=== PATIENT | female | born 1935 | race Caucasian/White ===

== ENCOUNTER 2016-08-10 21:30 | Emergency (ER) | payer MEDICARE, BC ==
[2016-08-10 21:56] VITALS: BP 123/66
[2016-08-10] MEDS ORDERED: Gabapentin 400 MG Cap ONE (22:28)
--- NOTE | 2016-08-10 22:49 | EDM.PDOC ---
ED HPI GENERAL MEDICAL PROBLEM - General Chief Complaint: Neurological Problem Stated Complaint: DIZZY Time Seen by Provider: 08/10/16 22:10 Source of Information: Reports: Patient, Family History Limitations: Reports: No Limitations - History of Present Illness INITIAL COMMENTS - FREE TEXT/NARRATIVE: 80-year-old female who was brought in by friends today because all day long she just hasn't felt right. She feels somewhat weak, lightheaded, anxious and is concerned that something is wrong. She has no fever or chills, no shortness of breath or chest pain, some minimal nausea but no abdominal pain or vomiting. She felt she may be dehydrated so drank a bunch of extra water this morning. Onset: Unknown/Unsure Severity: Mild Improves with: Reports: None Worsens with: Reports: None Associated Symptoms: Reports: Malaise. Denies: Chest Pain, Cough, Diaphoresis, Fever/Chills, Headaches, Loss of Appetite, Rash, Shortness of Breath, Syncope - Related Data Allergies Allergy/AdvReac Type Severity Reaction Status Date / Time No Known Allergies Allergy Verified 01/17/16 08:41 Home Meds: Home Meds Aspirin [Dalila Chewable Aspirin] 81 mg PO BEDTIME 08/29/13 [History] Triamterene/Hydrochlorothiazid [Dyazide 37.5-25] 1 cap PO DAILY 08/29/13 [ History] Multivitamins 1 each PO DAILY 10/17/13 [History] Ca Carbonate/Vitamin D3/Vit K [Calcium + D Soft Chewable Tab] 1 each PO BID [History] atorvaSTATin [Lipitor] 10 mg PO BEDTIME 11/14/15 [History] Gabapentin [Gabapentin] 1 tab PO TID 08/10/16 [History] Past Medical History HEENT History: Reports: Hard of Hearing, Impaired Vision, Other (See Below) Other HEENT History: meneres disease Cardiovascular History: Reports: High Cholesterol, Hypertension Respiratory History: Reports: Other (See Below) Other Respiratory History: Pneumonia within the past 4 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: Musculoskeletal History: Reports: Other (See Below) Other 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 Immunologic History: Reports: Other (See Below) Other Immunologic History: polymyalgia rheumatica (pmr) Dermatologic History: Reports: Other (See Below) Other Dermatologic History: rosacia - Past Surgical History HEENT Surgical History: Reports: Cataract Surgery GI Surgical History: Reports: Colonoscopy, Other (See Below) Musculoskeletal Surgical History: Reports: Hip Replacement Social & Family History - Tobacco Use Smoking Status *Q: Never Smoker Second Hand Smoke Exposure: No - Caffeine Use Caffeine Use: Reports: Coffee - Alcohol Use Days Per Week of Alcohol Use: 0 - Recreational Drug Use Recreational Drug Use: No - Living Situation & Occupation Living situation: Reports: ED ROS GENERAL - Review of Systems Review Of Systems: See Below Constitutional: Reports: Malaise, Weakness. Denies: Fever, Chills HEENT: Reports: No Symptoms. Denies: Vision Change Respiratory: Denies: Shortness of Breath, Cough Cardiovascular: Denies: Chest Pain Endocrine: Denies: Fatigue GI/Abdominal: Reports: Decreased Appetite, Nausea. 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 No: Extra Beats GI/Abdominal: Soft, Non-Tender Extremities: Normal Inspection. No: Pedal Edema Neurological: Alert, Oriented Psychiatric: Anxious Skin Exam: Warm, Dry Course - Vital Signs Last Recorded V/S: Last Vital Signs Temp 98.4 F 08/10/16 23:09 Pulse 74 08/10/16 23:09 Resp 20 08/10/16 23:09 BP 123/66 08/10/16 23:09 Pulse Ox 98 08/10/16 23:09 - Orders/Labs/Meds Labs: Laboratory Tests 08/10/16 08/10/16 Range/Units 22:22 22:22 WBC 6.6 (4.5-11.0) K/uL RBC 3.62 (3.30-5.50) M/uL Hgb 11.6 L (12.0-15.0) g/dL Hct 32.6 L (36.0-48.0) % MCV 90 (80-98) fL MCH 32 H (27-31) pg MCHC 36 (32-36) % Plt Count 245 (150-400) K/uL Neut % (Auto) 55 (36-66) % Lymph % (Auto) 29 (24-44) % Smith % (Auto) 14 H (2-6) % Eos % (Auto) 1 L (2-4) % Baso % (Auto) 1 (0-1) % Sodium 121 L (140-148) mmol/L Potassium 3.8 (3.6-5.2) mmol/L Chloride 86 L (100-108) mmol/L Carbon Dioxide 30 (21-32) mmol/L Anion Gap 8.8 (5.0-14.0) mmol/L BUN 21 H D (7-18) mg/dL Creatinine 0.9 (0.6-1.0) mg/dL Est Cr Clr Drug Dosing 42.61 mL/min Estimated GFR (MDRD) > 60 (>60) Glucose 82 (74-106) mg/dL Calcium 8.0 L (8.5-10.1) mg/dL Meds: Medications Discontinued Medications Generic Name Dose Route Start Last Admin Trade Name Freq PRN Reason Stop Dose Admin Gabapentin 400 mg 08/11/16 22:11 08/10/16 22:31 Neurontin PO 08/11/16 22:12 400 mg ONETIME ONE Administration Gabapentin Confirm 08/10/16 22:28 Neurontin Administered 08/10/16 22:29 Dose 400 mg .ROUTE .STK-MED ONE - Re-Assessments/Exams Free Text/Narrative Re-Assessment/Exam: 08/10/16 22:48 For reassurance a CBC and BMP were obtained. 08/10/16 23:04 CBC is normal, BMP shows a sodium of 121 otherwise basically normal. She was given 400 mg gabapentin. The sodium is probably low because of the increased water intake and I asked the patient to resume oral intake of water to just what she feels she needs and not push extra water intake. It would be reasonable to recheck her sodium later this week Departure - Departure Time of Disposition: 23:09 Disposition: Home, Self-Care 01 Condition: good Clinical Impression: Dilutional hyponatremia, Dizziness, nonspecific - Discharge Information Instructions: Hyponatremia, [id number] Referrals: Eloisa Miner CNM [Primary Care Provider] - Forms: ED Department Discharge Care Plan Goals: Drink no extra water, only what is recommended with your medications and if you feel thirsty. Return if worsening such as fever or chest pain. Consider rechecking your sodium next week at the clinic.
[2016-08-11] MEDS ORDERED: Gabapentin 400 MG Cap PO ONE (22:11)
== END 2016-08-10 23:09 | disposition home or self-care (01) ==
LOC: JP.ED 21:30
DX: E87.1 Hypo-osmolality and hyponatremia (principal); R42 Dizziness and giddiness; I10 Essential (primary) hypertension; E78.00 Pure hypercholesterolemia, unspecified; Z98.49 Cataract extraction status, unspecified eye; Z96.649 Presence of unspecified artificial hip joint; Z79.82 Long term (current) use of aspirin; Z79.899 Other long term (current) drug therapy
CPT/HCPCS: 36415; 80048; 85025; 99284; A9270; 99283

== ENCOUNTER 2017-03-24 05:27 | Inpatient (IN) | payer MEDICARE, BC ==
[2017-03-24] MEDS ORDERED: Gabapentin 300 MG Cap PO ONE ×2 (06:31→09:00)
[2017-03-24] MEDS ORDERED: Acetaminophen 500 MG Tab PO ONE ×2 (06:31→09:00)
[2017-03-24] MEDS ORDERED: Lactated Ringers 1,000 ML IV SCH ×2 (06:32→09:00)
[2017-03-24] MEDS ORDERED: ceFAZolin 1 GM in Premix Bag 1 BAG IV ONE ×3 (06:32→09:00)
[2017-03-24] MEDS ORDERED: Scopolamine 1.5 MG Transdermal Patch TOP SCH ×2 (06:32→09:00)
[2017-03-24] MEDS ORDERED: Povidone-Iodine 10% Soln 118.25 ML Bottle ONE (07:12)
[2017-03-24] MEDS ORDERED: Thrombin (Bovine) 5,000 Unit Kit ONE (07:12)
[2017-03-24] MEDS ORDERED: fentaNYL 250 MCG/5 ML SDV ONE ×2 (07:23→08:53)
[2017-03-24] MEDS ORDERED: Rocuronium 50 MG/5 ML Vial ONE (07:24)
[2017-03-24] MEDS ORDERED: Ondansetron 4 MG/2 ML SDV ONE (07:24)
[2017-03-24] MEDS ORDERED: Propofol 200 MG/20 ML SDV ONE (07:24)
[2017-03-24] MEDS ORDERED: Neostigmine Methylsulfate 1 MG/ML 5 ML Syringe ONE (07:24)
[2017-03-24] MEDS ORDERED: Glycopyrrolate 0.2 MG/ML 5 ML MDV ONE (07:24)
[2017-03-24] MEDS ORDERED: Dexamethasone 4 MG/ML SDV ONE (07:24)
[2017-03-24] MEDS ORDERED: Ropivacaine 49.25 ML, Ketorolac 30 MG, EPINEPHrine 0.5 MG, cloNIDine 80 MCG, Sodium Chl... INJECT ONE ×5 (07:30)
[2017-03-24] MEDS ORDERED: Gelatin Sponge,Absorbable Pwd 1 GM Pkt ONE (08:00)
[2017-03-24] MEDS ORDERED: ceFAZolin 1 GM in Sodium Chloride 0.9% 50 ML IV ONE (09:00)
[2017-03-24] MEDS ORDERED: Magnesium Hydroxide 400 MG/5 ML Susp 30 ML Cup PO PRN (09:31)
[2017-03-24] MEDS ORDERED: HYDROmorphone 1 MG/ML Syringe IVPUSH PRN (09:31)
[2017-03-24] MEDS ORDERED: Ondansetron 4 MG/2 ML SDV IVPUSH PRN (09:31)
[2017-03-24] MEDS ORDERED: Zolpidem 5 MG Tab PO PRN (09:31)
[2017-03-24] MEDS ORDERED: Aluminum Hydroxide/Magnesium Hydroxide/Simethicone Susp 30 ML Cup PO PRN (09:31)
[2017-03-24] MEDS ORDERED: Naloxone 0.4 MG/ML SDV IVPUSH PRN (09:31)
[2017-03-24] MEDS ORDERED: Sennosides 8.6 MG Tab PO PRN (09:31)
[2017-03-24] MEDS ORDERED: Diazepam 5 MG Tab PO PRN (09:31)
[2017-03-24] MEDS ORDERED: Sodium Chloride 0.9% 1,000 ML IV SCH (09:45)
[2017-03-24] MEDS ORDERED: ceFAZolin 1 GM in Sodium Chloride 0.9% 50 ML IV SCH (09:45)
[2017-03-24] MEDS ORDERED: fentaNYL 100 MCG/2 ML SDV IVPUSH ONE (09:50)
[2017-03-24] MEDS ORDERED: Acetaminophen 1,000 MG in Premix Bag 1 BAG IV ONE (10:00)
--- NOTE | 2017-03-24 10:17 | OR ---
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 POSTOPERATIVE DIAGNOSIS: L4-5 stenosis. PROCEDURE: L4-5 laminectomy. FORECLOSURE SPECIALIST: LANDON Hernandez Physician financial planning assistant, LANDON Guzman, played an essential role in assisting in this case, helping to position the patient, retract structures as needed, as well as suturing and cutting sutures as indicated. Her presence improved patient's safety and decreased operative time. ANESTHESIA: General endotracheal intubation. FLUIDS: Lactated Ringer solution. ESTIMATED BLOOD LOSS: 50 mL. COMPLICATIONS: None. SPECIMENS: None. DISCHARGE DISPOSITION: Stable, to PACU. INDICATIONS FOR PROCEDURE: The patient was seen preoperatively in the clinic. She had failed nonoperative treatment. Preoperative imaging confirmed the above-mentioned diagnosis. Risks and benefits of the procedure were explained to the patient. Informed consent was obtained. PROCEDURE IN DETAIL: The patient was seen preoperatively by myself and the anesthesia staff in the preoperative holding area. We did rerun her sodium today, which was 129, which we felt was safe to continue. We started her on sodium chloride per Anesthesia recommendations. She was brought to the operative suite by the anesthesia staff where general anesthesia was administered. Sterile Cesar catheter was placed. The patient was then prepped and flipped onto a Ike table. All extremities found to be well padded. The bed was then flexed. The patient was then prepped and draped in a sterile manner. Time- out was called, identifying the correct patient, the correct procedure, the correct site, and that antibiotics had been begun within an appropriate period of time. The sterilely draped fluoroscopy unit was then used in the lateral position to identify the L4-5 interspace. An incision was made over the L4-5 interspace over the spinous processes and carried down to the deep fascia. Bleeding was controlled during the case with Bovie electrocautery as well as an Aquamantys 5.0 unit. I used cerebellar for initial retraction and then used a Russo elevator with Bovie electrocautery over the L4 and L5 spinous processes, lamina out to the level of the facets. I then inserted two 45 mm Versa-Trac blades and then removed the inferior portion of the L4 spinous process and the superior most aspect of the L5 lamina and carried this up to the level of the pedicle of L4. I then used the cottonoid to protect the ligamentum flavum and dura and then removed the remainder of the inferior L4 lamina and superior L5 lamina. I then inserted a long ball underneath the ligamentum flavum, then created a space, then inserted a cottonoid, and then remove the ligamentum flavum with Kerrison rongeurs. We did remove quite a bit of material and carried that out to the lateral recesses, removing as much ligamentum flavum as possible. On the patient's right, ligamentum flavum was attached to the dura. I was able to detach its cranial attachments to the inferior L4 lamina on the right and leave some of the ligamentum flavum on the dura which was mobile with the dura. No durotomy was encountered during the procedure. We then took final films confirming our space was correct. We then copiously irrigated with 2 L of Betadine-infused irrigation and then placed FloSeal on the lateral recesses and tamped those gently with Ray-Gerald and then applied Gel-Foam powder. We then closed the fascia with #1 Stratafix followed by deep subcutaneous closure with #2 Stratafix, followed by #3 Stratafix and Dermabond as a sterile dressing. The patient had a sterile dressing placed, then was flipped into a supine position on her hospital bed, and taken to the PACU in stable condition. Clive Blount DO /[id number]
[2017-03-24] MEDS: oxyCODONE 5 MG Tab PO PRN ×2 (13:41→18:18)
[2017-03-24] MEDS: ceFAZolin 1 GM in Premix Bag 1 BAG IV SCH ×2 (13:41→21:21)
--- NOTE | 2017-03-24 17:46 | PCM.CONS ---
H&P History of Present Illness - General Date of Service: 03/24/17 Source of Information: Patient, RN Notes Reviewed History Limitations: Reports: No Limitations - History of Present Illness Initial Comments - Free Text/Narative: Mrs. Louise is a 81-year-old woman who I been asked to see by Dr. Cornell Blount for assistance in medical management during the postoperative period. Ms. Louise underwent lumbar laminectomy earlier today performed by Dr. Blount for management of lumbar spinal stenosis. She's done well in the immediate postoperative period, vital signs have been stable and she has been afebrile. Denies nausea, vomiting, chest pain, or shortness of breath. Back Pain Score (Numeric/FACES): 0 - Related Data Allergies/Adverse Reactions: Allergies Allergy/AdvReac Type Severity Reaction Status Date / Time No Known Allergies Allergy Verified 03/24/17 05:51 Home Medications: Home Meds Aspirin [Dalila Chewable Aspirin] 81 mg PO BEDTIME 08/29/13 [History] Triamterene/Hydrochlorothiazid [Dyazide 37.5-25] 1 cap PO DAILY 08/29/13 [ History] Multivitamins 1 each PO DAILY 10/17/13 [History] Ca Carbonate/Vitamin D3/Vit K [Calcium + D Soft Chewable Tab] 1 each PO BID [History] atorvaSTATin [Lipitor] 10 mg PO BEDTIME 11/14/15 [History] Lactobacillus Rhamnosus GG [Culturelle] 1 tab PO DAILY 02/04/17 [History] Past Medical History HEENT History: Reports: Hard of Hearing, Impaired Vision, Other (See Below) Other HEENT History: meneres disease Cardiovascular History: Reports: High Cholesterol, Hypertension Respiratory History: Reports: Other (See Below) Other Respiratory History: Pneumonia within the past 4 months Gastrointestinal History: Reports: 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 L lower leg pain Other Neuro History: menieres disease Immunologic History: Reports: Other (See Below) Other Immunologic History: polymyalgia rheumatica (pmr) Dermatologic History: Reports: Other (See Below) Other Dermatologic History: rosacia - Infectious Disease History Infectious Disease History: Reports: Chicken Pox, Measles, Mumps - Past Surgical History Head Surgeries/Procedures: Reports: None HEENT Surgical History: Reports: Cataract Surgery Cardiovascular Surgical History: Reports: None GI Surgical History: Reports: Colonoscopy, Other (See Below) Neurological Surgical History: Reports: None Musculoskeletal Surgical History: Reports: Hip Replacement Dermatological Surgical History: Reports: None Social & Family History - Family History Family Medical History: Noncontributory - Tobacco Use Smoking Status *Q: Never Smoker Second Hand Smoke Exposure: No - Caffeine Use Caffeine Use: Reports: None - Alcohol Use Days Per Week of Alcohol Use: 0 - Recreational Drug Use Recreational Drug Use: No - Living Situation & Occupation Living situation: Reports: H&P Review of Systems - Review of Systems: Review Of Systems: See Below General: Denies: Fever, Chills, Weakness Pulmonary: Reports: No Symptoms Cardiovascular: Reports: No Symptoms Gastrointestinal: Reports: No Symptoms Genitourinary: Reports: No Symptoms Musculoskeletal: Reports: Back Pain Exam - Exam Exam: See Below - Vital Signs Vital Signs: Last Vital Signs Temp 94.3 F L 03/24/17 16:20 Pulse 60 03/24/17 16:20 Resp 18 03/24/17 16:20 BP 112/95 H 03/24/17 16:20 Pulse Ox 98 03/24/17 16:20 Weight: 138 lb - Exam Quality Assessment: Urinary Catheter, DVT Prophylaxis General: Alert, Oriented, Cooperative, Mild Distress Neck: Supple, Trachea Midline, +2 Carotid Pulse wo Bruit Lungs: Clear to Auscultation, Normal Respiratory Effort Cardiovascular: Regular Rate, Regular Rhythm, Normal S1, Normal S2. No: Systolic Murmur, Diastolic Murmur GI/Abdominal Exam: Soft, Non-Tender, No Organomegaly, No Distention Extremities: Non-Tender, No Pedal Edema - Patient Data Lab Results Last 24 hrs: Laboratory Results - last 24 hr 03/24/17 Range/Units 07:20 Sodium 129 L (140-148) mmol/L Result Diagrams: 03/24/17 07:20 Consult PN Assessment/Plan Procedures: Procedures AIRWAY INHALATION TREATMENT (11/14/15) ASSAY OF AMYLASE (11/14/15) ASSAY OF LACTIC ACID (11/14/15) ASSAY OF LIPASE (11/14/15) BLOOD CULTURE FOR BACTERIA (11/14/15) C-REACTIVE PROTEIN (11/14/15) CATARACT SURG W/IOL 1 STAGE (02/15/15) CHEST WALL MANIPULATION (11/14/15) CHEST X-RAY 2VW FRONTAL&LATL (11/14/15) COMP SCREEN MAMMOGRAM ADD-ON (03/06/14) COMPLETE CBC AUTOMATED (03/16/17) COMPLETE CBC W/AUTO DIFF WBC (08/10/16) COMPREHEN METABOLIC PANEL (03/16/17) CT ABD & PELV W/CONTRAST (10/22/14) CT HEAD/BRAIN W/O DYE (01/17/16) CT LUMBAR SPINE W/O DYE (03/14/15) CULTURE OTHR SPECIMN AEROBIC (03/16/17) EHRLICHIA ANTIBODY (10/22/14) ELECTRICAL STIMULATION (08/26/16) ELECTROCARDIOGRAM TRACING (03/16/17) EMERGENCY DEPT VISIT (08/10/16) EMERGENCY DEPT VISIT (01/17/16) EMERGENCY DEPT VISIT (11/14/15) EMERGENCY DEPT VISIT (10/22/14) EMERGENCY DEPT VISIT (10/22/14) EMERGENCY DEPT VISIT (07/05/14) EMERGENCY DEPT VISIT (08/29/13) HEPATIC FUNCTION PANEL (10/22/14) HYDRATION IV INFUSION INIT (11/14/15) IMMUNIZATION ADMIN (01/17/16) LOWER EXTREMITY STUDY (12/30/16) MANUAL THERAPY 1/> REGIONS (09/11/16) METABOLIC PANEL TOTAL CA (08/10/16) MICROBE SUSCEPTIBLE ELOY (11/14/15) MRI LUMBAR SPINE W/O DYE (07/28/16) NEUROMUSCULAR REEDUCATION (08/26/16) NJX INTERLAMINAR LMBR/SAC (02/04/17) OFFICE/OUTPATIENT VISIT EST (02/23/17) PROTOZOA ANTIBODY NOS (10/22/14) PT EVAL MOD COMPLEX 30 MIN (08/26/16) PT EVALUATION (09/27/15) RBC SED RATE NONAUTOMATED (10/22/14) ROUTINE VENIPUNCTURE (03/16/17) RPR F/E/E/N/L/M 2.5 CM/< (01/17/16) TDAP VACCINE 7 YRS/> IM (01/17/16) THERAPEUTIC ACTIVITIES (05/10/15) THERAPEUTIC EXERCISES (09/11/16) ULTRASOUND THERAPY (08/26/16) URINALYSIS AUTO W/O SCOPE (03/16/17) URINALYSIS AUTO W/SCOPE (11/14/15) URINE BACTERIA CULTURE (11/14/15) URINE CULTURE/COLONY COUNT (11/14/15) X-RAY EXAM L-S SPINE 2/3 VWS (10/30/16) Problem List Initiated/Reviewed/Updated: Yes My Orders Last 24 Hours: My Active Orders 03/24/17 21:00 atorvaSTATin [Lipitor] 10 mg PO BEDTIME 03/25/17 09:00 HCTZ/Triamterene [Dyazide 25-37.5 MG] 1 each PO DAILY Lactobacillus Rhamnosus GG [Culturelle] 1 cap PO DAILY Plan: ASSESSMENT AND RECOMMENDATIONS STATUS POST LUMBAR LAMINECTOMY-stable and doing well in the immediate postoperative period -Postoperative care per Dr. Blount HYPERTENSION -Continue outpatient medical regimen HYPERCHOLESTEROLEMIA -Continue outpatient medical management Requesting Provider: HERMANN Date Consult Requested: 03/24/17 Reason for Consult: Postoperative medical management Patient History Reviewed: Yes
[2017-03-24] MEDS: atorvaSTATin 10 MG Tab PO SCH (21:21)
[2017-03-25] MEDS: oxyCODONE 5 MG Tab PO PRN ×2 (00:05→09:16)
[2017-03-25] MEDS: ceFAZolin 1 GM in Premix Bag 1 BAG IV SCH (06:02)
[2017-03-25] MEDS: Hydrochlorothiazide/Triamterene 25-37.5 MG Cap PO SCH (09:15)
[2017-03-25] MEDS: Lactobacillus Rhamnosus GG (Probiotic) Cap PO SCH (09:15)
[2017-03-25] MEDS ORDERED: Acetaminophen/oxyCODONE 325-5 MG Tab PO PRN (09:31)
[2017-03-25] MEDS ORDERED: Methadone 10 MG Tab PO SCH (13:00)
--- NOTE | 2017-03-25 13:02 | PCM.CONSN ---
- General Info Date of Service: 03/25/17 Subjective Update: Ms. Powers has had some ongoing difficulty with confusion and mild agitation since surgery yesterday. Vital signs have been stable and she has been afebrile. Reports the current pain control is adequate although narcotics are likely contributing to current delirium. Functional Status: Reports: Pain Controlled, Tolerating Diet, Urinating - Review of Systems General: Denies: Fever, Chills Pulmonary: Reports: No Symptoms Cardiovascular: Reports: No Symptoms Gastrointestinal: Reports: No Symptoms - Patient Data Vitals - Most Recent: Last Vital Signs Temp 98.4 F 03/25/17 11:14 Pulse 79 03/25/17 11:14 Resp 16 03/25/17 11:14 BP 100/61 03/25/17 11:14 Pulse Ox 92 L 03/25/17 11:14 Weight - Most Recent: 138 lb I&O - Last 24 Hours: Intake & Output 03/24/17 03/25/17 03/25/17 22:59 06:59 14:59 Intake Total 1698 990 Output Total 650 1800 Balance 1048 -810 Med Orders - Current: Current Medications Al Hydroxide/Mg Hydroxide (Mag-Al Plus) 30 ml PO Q4H PRN PRN Reason: Indigestion Atorvastatin Calcium (Lipitor) 10 mg PO BEDTIME [facility] Last Admin: 03/24/17 21:21 Dose: 10 mg Diazepam (Valium.) 5 mg PO Q6H PRN PRN Reason: Spasms Divalproex Sodium (Divalproex Sodium) 250 mg PO BIDMEALS [facility] Lactated Ringer's (Ringers, Lactated) 1,000 mls @ 0 mls/hr IV ASDIRECTED [facility] PRN Reason: KVO Last Admin: 03/24/17 06:00 Dose: 100 mls/hr Lactobacillus Rhamnosus (Culturelle) 1 cap PO DAILY [facility] Last Admin: 03/25/17 09:15 Dose: 1 cap Magnesium Hydroxide (Milk Of Magnesia) 30 ml PO BID PRN PRN Reason: Constipation Melatonin (Melatonin) 9 mg PO BEDTIME [facility] Naloxone HCl (Narcan) 0.2 mg IVPUSH ONETIME PRN PRN Reason: Oversedation Ondansetron HCl (Zofran) 8 mg IVPUSH Q4H PRN PRN Reason: Nausea/Vomiting Oxycodone/Acetaminophen (Percocet 325-5 Mg) 2 tab PO Q4H PRN PRN Reason: Pain Scopolamine (Transderm-Scop) 1.5 mg TOP Q72H [facility] Stop: 03/27/17 04:00 Last Admin: 03/24/17 06:45 Dose: 1.5 mg Senna (Senna) 8.6 mg PO BID PRN PRN Reason: Constipation Triamterene/HCTZ (Dyazide 25-37.5 Mg) 1 each PO DAILY [facility] Last Admin: 03/25/17 09:15 Dose: Not Given Zolpidem Tartrate (Ambien) 5 mg PO BEDTIME PRN PRN Reason: Sleep Discontinued Medications Acetaminophen (Tylenol Extra Strength) 1,000 mg PO ONETIME ONE Stop: 03/24/17 09:01 Acetaminophen (Tylenol Extra Strength) 1,000 mg PO ONETIME ONE Stop: 03/24/17 06:32 Last Admin: 03/24/17 06:44 Dose: 1,000 mg Ropivacaine 49.25 ml/Ketorolac Tromethamine 30 mg/Epinephrine HCl 0.5 mg/ Clonidine HCl 80 mcg/ Sodium Chloride 48.45 ml 0 ml INJECT ONETIME ONE Stop: 03/24/17 07:31 Last Admin: 03/24/17 08:26 Dose: 100 ml Dexamethasone (Dexamethasone) Confirm Administered Dose 4 mg .ROUTE .STK-MED ONE Stop: 03/24/17 07:25 Fentanyl (Sublimaze) Confirm Administered Dose 250 mcg .ROUTE .STK-MED ONE Stop: 03/24/17 07:24 Fentanyl (Sublimaze) Confirm Administered Dose 250 mcg .ROUTE .STK-MED ONE Stop: 03/24/17 08:54 Fentanyl (Sublimaze) 100 mcg IVPUSH ONETIME ONE Stop: 03/24/17 09:51 Last Admin: 03/24/17 09:50 Dose: 100 mcg Gabapentin (Neurontin) 300 mg PO ONETIME ONE Stop: 03/24/17 09:01 Gabapentin (Neurontin) 300 mg PO ONETIME ONE Stop: 03/24/17 06:32 Last Admin: 03/24/17 06:44 Dose: 300 mg Gelatin (Gelfoam) 2 gm .ROUTE .STK-MED ONE Stop: 03/24/17 08:01 Glycopyrrolate (Robinul) Confirm Administered Dose 1 mg .ROUTE .STK-MED ONE Stop: 03/24/17 07:25 Hydromorphone HCl (Dilaudid) 1 mg IVPUSH Q2H PRN PRN Reason: Pain Stop: 03/25/17 09:31 Lactated Ringer's (Ringers, Lactated) 1,000 mls @ 0 mls/hr IV ASDIRECTED [facility] PRN Reason: KVO Cefazolin Sodium/Dextrose 1 gm (/ Premix) 50 mls @ 100 mls/hr IV ONETIME ONE Stop: 03/24/17 09:29 Cefazolin Sodium/Dextrose 1 gm (/ Premix) 50 mls @ 100 mls/hr IV ONETIME ONE Stop: 03/24/17 07:00 Last Admin: 03/24/17 07:52 Dose: 100 mls/hr Acetaminophen 1,000 mg/ Premix 100 mls @ 400 mls/hr IV NOW ONE Stop: 03/24/17 10:14 Last Admin: 03/24/17 09:56 Dose: 400 mls/hr Cefazolin Sodium 1 gm/ Sodium (Chloride) 50 mls @ 100 mls/hr IV Q8H [facility] Stop: 03/25/17 02:14 Last Admin: 03/24/17 12:00 Dose: Not Given Sodium Chloride (Normal Saline) 1,000 mls @ 125 mls/hr IV ASDIRECTED [facility] Stop: 03/25/17 06:00 Last Admin: 03/24/17 10:25 Dose: 125 mls/hr Cefazolin Sodium/Dextrose 1 gm (/ Premix) 50 mls @ 100 mls/hr IV Q8H [facility] Stop: 03/25/17 06:29 Last Admin: 03/25/17 06:02 Dose: 100 mls/hr Methadone HCl (Methadone) 10 mg PO BID [facility] Neostigmine Methylsulfate (Neostigmine) Confirm Administered Dose 5 mg .ROUTE .STK-MED ONE Stop: 03/24/17 07:25 Ondansetron HCl (Zofran) Confirm Administered Dose 4 mg .ROUTE .STK-MED ONE Stop: 03/24/17 07:25 Oxycodone HCl (Oxycodone) 10 mg PO Q4H PRN PRN Reason: Pain Stop: 03/25/17 09:31 Last Admin: 03/25/17 09:16 Dose: 10 mg Povidone Iodine (Betadine 10% Soln) Confirm Administered Dose 1 ml .ROUTE .STK- MED ONE Stop: 03/24/17 07:13 Last Admin: 03/24/17 08:34 Dose: 30 ml Propofol (Diprivan 20 Ml) Confirm Administered Dose 200 mg .ROUTE .STK-MED ONE Stop: 03/24/17 07:25 Rocuronium [place] (Zemuron) Confirm Administered Dose 50 mg .ROUTE .STK-MED ONE Stop: 03/24/17 07:25 Scopolamine (Transderm-Scop) 1.5 mg TOP Q72H [facility] Stop: 03/27/17 04:00 Thrombin (Thrombin-Jmi) Confirm Administered Dose 15,000 unit .ROUTE .STK-MED ONE Stop: 03/24/17 07:13 Last Admin: 03/24/17 07:50 Dose: 10,000 unit - Exam Quality Assessment: DVT Prophylaxis General: No: Oriented Lungs: Clear to Auscultation, Normal Respiratory Effort Cardiovascular: Regular Rate, Regular Rhythm, No Murmurs GI/Abdominal Exam: Soft, Non-Tender, No Organomegaly, No Distention Extremities: Non-Tender, No Pedal Edema Skin: Warm, Dry Psy/Mental Status: Agitated Consult PN Assessment/Plan Procedures: Procedures AIRWAY INHALATION TREATMENT (11/14/15) ASSAY OF AMYLASE (11/14/15) ASSAY OF LACTIC ACID (11/14/15) ASSAY OF LIPASE (11/14/15) BLOOD CULTURE FOR BACTERIA (11/14/15) C-REACTIVE PROTEIN (11/14/15) CATARACT SURG W/IOL 1 STAGE (02/15/15) CHEST WALL MANIPULATION (11/14/15) CHEST X-RAY 2VW FRONTAL&LATL (11/14/15) COMP SCREEN MAMMOGRAM ADD-ON (03/06/14) COMPLETE CBC AUTOMATED (03/16/17) COMPLETE CBC W/AUTO DIFF WBC (08/10/16) COMPREHEN METABOLIC PANEL (03/16/17) CT ABD & PELV W/CONTRAST (10/22/14) CT HEAD/BRAIN W/O DYE (01/17/16) CT LUMBAR SPINE W/O DYE (03/14/15) CULTURE OTHR SPECIMN AEROBIC (03/16/17) EHRLICHIA ANTIBODY (10/22/14) ELECTRICAL STIMULATION (08/26/16) ELECTROCARDIOGRAM TRACING (03/16/17) EMERGENCY DEPT VISIT (08/10/16) EMERGENCY DEPT VISIT (01/17/16) EMERGENCY DEPT VISIT (11/14/15) EMERGENCY DEPT VISIT (10/22/14) EMERGENCY DEPT VISIT (10/22/14) EMERGENCY DEPT VISIT (07/05/14) EMERGENCY DEPT VISIT (08/29/13) HEPATIC FUNCTION PANEL (10/22/14) HYDRATION IV INFUSION INIT (11/14/15) IMMUNIZATION ADMIN (01/17/16) LOWER EXTREMITY STUDY (12/30/16) MANUAL THERAPY 1/> REGIONS (09/11/16) METABOLIC PANEL TOTAL CA (08/10/16) MICROBE SUSCEPTIBLE ELOY (11/14/15) MRI LUMBAR SPINE W/O DYE (07/28/16) NEUROMUSCULAR REEDUCATION (08/26/16) NJX INTERLAMINAR LMBR/SAC (02/04/17) OFFICE/OUTPATIENT VISIT EST (02/23/17) PROTOZOA ANTIBODY NOS (10/22/14) PT EVAL MOD COMPLEX 30 MIN (08/26/16) PT EVALUATION (09/27/15) RBC SED RATE NONAUTOMATED (10/22/14) ROUTINE VENIPUNCTURE (03/16/17) RPR F/E/E/N/L/M 2.5 CM/< (01/17/16) TDAP VACCINE 7 YRS/> IM (01/17/16) THERAPEUTIC ACTIVITIES (05/10/15) THERAPEUTIC EXERCISES (09/11/16) ULTRASOUND THERAPY (08/26/16) URINALYSIS AUTO W/O SCOPE (03/16/17) URINALYSIS AUTO W/SCOPE (11/14/15) URINE BACTERIA CULTURE (11/14/15) URINE CULTURE/COLONY COUNT (11/14/15) X-RAY EXAM L-S SPINE 2/3 VWS (10/30/16) Problem List Initiated/Reviewed/Updated: Yes My Orders Last 24 Hours: My Active Orders 03/24/17 21:00 atorvaSTATin [Lipitor] 10 mg PO BEDTIME 03/25/17 09:00 HCTZ/Triamterene [Dyazide 25-37.5 MG] 1 each PO DAILY Lactobacillus Rhamnosus GG [Culturelle] 1 cap PO DAILY 03/25/17 17:00 Divalproex Sodium 250 mg PO BIDMEALS 03/25/17 21:00 Melatonin 9 mg PO BEDTIME Plan: ASSESSMENT AND RECOMMENDATIONS STATUS POST LUMBAR LAMINECTOMY-stable and doing well in the immediate postoperative period -Postoperative care per Dr. Blount DELIRIUM WITH MILD AGITATION-at baseline has mild cognitive impairment -Avoid use of benzodiazepines -Melatonin 9 mg by mouth daily at bedtime -Depakote 250 mg by mouth twice a day HYPERTENSION -Continue outpatient medical regimen HYPERCHOLESTEROLEMIA -Continue outpatient medical management
[2017-03-25] MEDS: Divalproex Sodium Delayed-Release 250 MG Tab.CR PO SCH (16:47)
[2017-03-25] MEDS: Acetaminophen 325 MG Tab PO PRN ×2 (16:47→22:39)
[2017-03-25] MEDS: traMADol 50 MG Tab PO PRN ×2 (16:48→22:39)
[2017-03-25] MEDS: Melatonin 3 MG Tab PO SCH (22:03)
[2017-03-25] MEDS: atorvaSTATin 10 MG Tab PO SCH (22:04)
[2017-03-26] MEDS: traMADol 50 MG Tab PO PRN ×3 (04:34→20:12)
[2017-03-26] MEDS: Acetaminophen 325 MG Tab PO PRN ×3 (04:35→20:11)
[2017-03-26] MEDS: Divalproex Sodium Delayed-Release 250 MG Tab.CR PO SCH (08:28)
[2017-03-26] MEDS: Lactobacillus Rhamnosus GG (Probiotic) Cap PO SCH (08:28)
[2017-03-26] MEDS: Hydrochlorothiazide/Triamterene 25-37.5 MG Cap PO SCH (10:36)
--- NOTE | 2017-03-26 13:15 | PCM.CONSN ---
- General Info Date of Service: 03/26/17 Subjective Update: This patient has been stable over the past 24 hours, delirium with agitation has resolved. Vital signs have been stable and she has been afebrile. She is moving more easily and been able to ambulate in the hallway with assistance of 1. Functional Status: Reports: Pain Controlled, Tolerating Diet, Ambulating, Urinating - Review of Systems General: Denies: Fever, Chills Pulmonary: Reports: No Symptoms Cardiovascular: Reports: No Symptoms Gastrointestinal: Reports: No Symptoms Musculoskeletal: Reports: Back Pain - Patient Data Vitals - Most Recent: Last Vital Signs Temp 96.4 F 03/26/17 11:34 Pulse 77 03/26/17 11:34 Resp 16 03/26/17 11:34 BP 119/62 03/26/17 11:34 Pulse Ox 97 03/26/17 11:34 Weight - Most Recent: 138 lb I&O - Last 24 Hours: Intake & Output 03/25/17 03/26/17 03/26/17 22:59 06:59 14:59 Intake Total 1200 240 550 Output Total 350 2000 1200 Balance 850 -4073 -650 Med Orders - Current: Current Medications Acetaminophen (Tylenol) 650 mg PO Q6H PRN PRN Reason: Pain (mild 1-3) Last Admin: 03/26/17 10:36 Dose: 650 mg Al Hydroxide/Mg Hydroxide (Mag-Al Plus) 30 ml PO Q4H PRN PRN Reason: Indigestion Atorvastatin Calcium (Lipitor) 10 mg PO BEDTIME [facility] Last Admin: 03/25/17 22:04 Dose: 10 mg Divalproex Sodium (Divalproex Sodium) 250 mg PO BIDMEALS [facility] [place] Last Admin: 03/26/17 08:28 Dose: 250 mg Lactated Ringer's (Ringers, Lactated) 1,000 mls @ 0 mls/hr IV ASDIRECTED [facility] PRN Reason: KVO Last Admin: 03/24/17 06:00 Dose: 100 mls/hr Lactobacillus Rhamnosus (Culturelle) 1 cap PO DAILY [facility] [place] Last Admin: 03/26/17 08:28 Dose: 1 cap Magnesium Hydroxide (Milk Of Magnesia) 30 ml PO BID PRN PRN Reason: Constipation Melatonin (Melatonin) 9 mg PO BEDTIME [facility] [place] Last Admin: 03/25/17 22:03 Dose: 9 mg Naloxone HCl (Narcan) 0.2 mg IVPUSH ONETIME PRN PRN Reason: Oversedation Ondansetron HCl (Zofran) 8 mg IVPUSH Q4H PRN PRN Reason: Nausea/Vomiting Senna (Senna) 8.6 mg PO BID PRN PRN Reason: Constipation Tramadol HCl (Ultram) 50 mg PO Q6H PRN PRN Reason: Pain (moderate 4-6) Last Admin: 03/26/17 10:36 Dose: 50 mg Triamterene/HCTZ (Dyazide 25-37.5 Mg) 1 each PO DAILY [facility] Last Admin: 03/26/17 10:36 Dose: 1 each Discontinued Medications Acetaminophen (Tylenol Extra Strength) 1,000 mg PO ONETIME ONE Stop: 03/24/17 09:01 Acetaminophen (Tylenol Extra Strength) 1,000 mg PO ONETIME ONE Stop: 03/24/17 06:32 Last Admin: 03/24/17 06:44 Dose: 1,000 mg Ropivacaine 49.25 ml/Ketorolac Tromethamine 30 mg/Epinephrine HCl 0.5 mg/ Clonidine HCl 80 mcg/ Sodium Chloride 48.45 ml 0 ml INJECT ONETIME ONE Stop: 03/24/17 07:31 Last Admin: 03/24/17 08:26 Dose: 100 ml Dexamethasone (Dexamethasone) Confirm Administered Dose 4 mg .ROUTE .STK-MED ONE Stop: 03/24/17 07:25 Diazepam (Valium.) 5 mg PO Q6H PRN PRN Reason: Spasms Fentanyl (Sublimaze) Confirm Administered Dose 250 mcg .ROUTE .STK-MED ONE Stop: 03/24/17 07:24 Fentanyl (Sublimaze) Confirm Administered Dose 250 mcg .ROUTE .STK-MED ONE Stop: 03/24/17 08:54 Fentanyl (Sublimaze) 100 mcg IVPUSH ONETIME ONE Stop: 03/24/17 09:51 Last Admin: 03/24/17 09:50 Dose: 100 mcg Gabapentin (Neurontin) 300 mg PO ONETIME ONE Stop: 03/24/17 09:01 Gabapentin (Neurontin) 300 mg PO ONETIME ONE Stop: 03/24/17 06:32 Last Admin: 03/24/17 06:44 Dose: 300 mg Gelatin (Gelfoam) 2 gm .ROUTE .STK-MED ONE Stop: 03/24/17 08:01 Glycopyrrolate (Robinul) Confirm Administered Dose 1 mg .ROUTE .STK-MED ONE Stop: 03/24/17 07:25 Hydromorphone HCl (Dilaudid) 1 mg IVPUSH Q2H PRN PRN Reason: Pain Stop: 03/25/17 09:31 Lactated Ringer's (Ringers, Lactated) 1,000 mls @ 0 mls/hr IV ASDIRECTED [facility] PRN Reason: KVO Cefazolin Sodium/Dextrose 1 gm (/ Premix) 50 mls @ 100 mls/hr IV ONETIME ONE Stop: 03/24/17 09:29 Cefazolin Sodium/Dextrose 1 gm (/ Premix) 50 mls @ 100 mls/hr IV ONETIME ONE Stop: 03/24/17 07:00 Last Admin: 03/24/17 07:52 Dose: 100 mls/hr Acetaminophen 1,000 mg/ Premix 100 mls @ 400 mls/hr IV NOW ONE Stop: 03/24/17 10:14 Last Admin: 03/24/17 09:56 Dose: 400 mls/hr Cefazolin Sodium 1 gm/ Sodium (Chloride) 50 mls @ 100 mls/hr IV Q8H [facility] [place] Stop: 03/25/17 02:14 Last Admin: 03/24/17 12:00 Dose: Not Given Sodium Chloride (Normal Saline) 1,000 mls @ 125 mls/hr IV ASDIRECTED [facility] [place] Stop: 03/25/17 06:00 Last Admin: 03/24/17 10:25 Dose: 125 mls/hr Cefazolin Sodium/Dextrose 1 gm (/ Premix) 50 mls @ 100 mls/hr IV Q8H [facility] [place] Stop: 03/25/17 06:29 Last Admin: 03/25/17 06:02 Dose: 100 mls/hr Methadone HCl (Methadone) 10 mg PO BID [facility] Neostigmine Methylsulfate (Neostigmine) Confirm Administered Dose 5 mg .ROUTE .STK-MED ONE Stop: 03/24/17 07:25 Ondansetron HCl (Zofran) Confirm Administered Dose 4 mg .ROUTE .STK-MED ONE Stop: 03/24/17 07:25 Oxycodone HCl (Oxycodone) 10 mg PO Q4H PRN PRN Reason: Pain Stop: 03/25/17 09:31 Last Admin: 03/25/17 09:16 Dose: 10 mg Oxycodone/Acetaminophen (Percocet 325-5 Mg) 2 tab PO Q4H PRN PRN Reason: Pain Povidone Iodine (Betadine 10% Soln) Confirm Administered Dose 1 ml .ROUTE .STK- MED ONE Stop: 03/24/17 07:13 Last Admin: 03/24/17 08:34 Dose: 30 ml Propofol (Diprivan 20 Ml) Confirm Administered Dose 200 mg .ROUTE .STK-MED ONE Stop: 03/24/17 07:25 Rocuronium [place] (Zemuron) Confirm Administered Dose 50 mg .ROUTE .STK-MED ONE Stop: 03/24/17 07:25 Scopolamine (Transderm-Scop) 1.5 mg TOP Q72H [facility] Stop: 03/27/17 04:00 Scopolamine (Transderm-Scop) 1.5 mg TOP Q72H [facility] Stop: 03/27/17 04:00 Last Admin: 03/24/17 06:45 Dose: 1.5 mg Thrombin (Thrombin-Jmi) Confirm Administered Dose 15,000 unit .ROUTE .STK-MED ONE Stop: 03/24/17 07:13 Last Admin: 03/24/17 07:50 Dose: 10,000 unit Zolpidem Tartrate (Ambien) 5 mg PO BEDTIME PRN PRN Reason: Sleep - Exam General: Alert, Oriented, Cooperative, Mild Distress Lungs: Clear to Auscultation, Normal Respiratory Effort Cardiovascular: Regular Rate, Regular Rhythm, No Murmurs GI/Abdominal Exam: Soft, Non-Tender, No Organomegaly, No Distention Extremities: Non-Tender, No Pedal Edema Skin: Warm, Dry Consult PN Assessment/Plan Procedures: Procedures AIRWAY INHALATION TREATMENT (11/14/15) ASSAY OF AMYLASE (11/14/15) ASSAY OF LACTIC ACID (11/14/15) ASSAY OF LIPASE (11/14/15) BLOOD CULTURE FOR BACTERIA (11/14/15) C-REACTIVE PROTEIN (11/14/15) CATARACT SURG W/IOL 1 STAGE (02/15/15) CHEST WALL MANIPULATION (11/14/15) CHEST X-RAY 2VW FRONTAL&LATL (11/14/15) COMP SCREEN MAMMOGRAM ADD-ON (03/06/14) COMPLETE CBC AUTOMATED (03/16/17) COMPLETE CBC W/AUTO DIFF WBC (08/10/16) COMPREHEN METABOLIC PANEL (03/16/17) CT ABD & PELV W/CONTRAST (10/22/14) CT HEAD/BRAIN W/O DYE (01/17/16) CT LUMBAR SPINE W/O DYE (03/14/15) CULTURE OTHR SPECIMN AEROBIC (03/16/17) EHRLICHIA ANTIBODY (10/22/14) ELECTRICAL STIMULATION (08/26/16) ELECTROCARDIOGRAM TRACING (03/16/17) EMERGENCY DEPT VISIT (08/10/16) EMERGENCY DEPT VISIT (01/17/16) EMERGENCY DEPT VISIT (11/14/15) EMERGENCY DEPT VISIT (10/22/14) EMERGENCY DEPT VISIT (10/22/14) EMERGENCY DEPT VISIT (07/05/14) EMERGENCY DEPT VISIT (08/29/13) HEPATIC FUNCTION PANEL (10/22/14) HYDRATION IV INFUSION INIT (11/14/15) IMMUNIZATION ADMIN (01/17/16) LOWER EXTREMITY STUDY (12/30/16) MANUAL THERAPY 1/> REGIONS (09/11/16) METABOLIC PANEL TOTAL CA (08/10/16) MICROBE SUSCEPTIBLE ELOY (11/14/15) MRI LUMBAR SPINE W/O DYE (07/28/16) NEUROMUSCULAR REEDUCATION (08/26/16) NJX INTERLAMINAR LMBR/SAC (02/04/17) OFFICE/OUTPATIENT VISIT EST (02/23/17) PROTOZOA ANTIBODY NOS (10/22/14) PT EVAL MOD COMPLEX 30 MIN (08/26/16) PT EVALUATION (09/27/15) RBC SED RATE NONAUTOMATED (10/22/14) ROUTINE VENIPUNCTURE (03/16/17) RPR F/E/E/N/L/M 2.5 CM/< (01/17/16) TDAP VACCINE 7 YRS/> IM (01/17/16) THERAPEUTIC ACTIVITIES (05/10/15) THERAPEUTIC EXERCISES (09/11/16) ULTRASOUND THERAPY (08/26/16) URINALYSIS AUTO W/O SCOPE (03/16/17) URINALYSIS AUTO W/SCOPE (08/17/16) URINE BACTERIA CULTURE (11/14/15) URINE CULTURE/COLONY COUNT (11/14/15) X-RAY EXAM L-S SPINE 2/3 VWS (10/30/16) Problem List Initiated/Reviewed/Updated: Yes My Orders Last 24 Hours: My Active Orders 03/25/17 17:00 Divalproex Sodium 250 mg PO BIDMEALS 03/25/17 21:00 Melatonin 9 mg PO BEDTIME Plan: ASSESSMENT AND RECOMMENDATIONS STATUS POST LUMBAR LAMINECTOMY-stable and doing well -Postoperative care per Dr. Blount DELIRIUM WITH MILD AGITATION- resolved with current management -Avoid use of benzodiazepines -Melatonin 9 mg by mouth daily at bedtime -Depakote 250 mg by mouth twice a day HYPERTENSION -Continue outpatient medical regimen HYPERCHOLESTEROLEMIA -Continue outpatient medical management
--- NOTE | 2017-03-26 15:56 | PCM.PN ---
- General Info Functional Status: Reports: Pain Controlled, Ambulating, Urinating - Review of Systems General: Reports: No Symptoms HEENT: Reports: No Symptoms Pulmonary: Reports: No Symptoms Cardiovascular: Reports: No Symptoms Gastrointestinal: Reports: No Symptoms Genitourinary: Reports: No Symptoms Musculoskeletal: Reports: Back Pain Skin: Reports: No Symptoms Neurological: Reports: No Symptoms Psychiatric: Reports: No Symptoms - Patient Data Vitals - Most Recent: Last Vital Signs Temp 97.6 F 03/26/17 15:47 Pulse 80 03/26/17 15:47 Resp 18 03/26/17 15:47 BP 119/63 03/26/17 15:47 Pulse Ox 98 03/26/17 15:47 Weight - Most Recent: 138 lb I&O - Last 24 Hours: Intake & Output 03/26/17 03/26/17 03/26/17 06:59 14:59 22:59 Intake Total 240 1230 Output Total 2000 1200 Balance -1760 30 Med Orders - Current: Current Medications Acetaminophen (Tylenol) 650 mg PO Q6H PRN PRN Reason: Pain (mild 1-3) Last Admin: 03/26/17 10:36 Dose: 650 mg Al Hydroxide/Mg Hydroxide (Mag-Al Plus) 30 ml PO Q4H PRN PRN Reason: Indigestion Atorvastatin Calcium (Lipitor) 10 mg PO BEDTIME [facility] Last Admin: 03/25/17 22:04 Dose: 10 mg Lactated Ringer's (Ringers, Lactated) 1,000 mls @ 0 mls/hr IV ASDIRECTED [facility] PRN Reason: KVO Last Admin: 03/24/17 06:00 Dose: 100 mls/hr Lactobacillus Rhamnosus (Culturelle) 1 cap PO DAILY [facility] Last Admin: 03/26/17 08:28 Dose: 1 cap Magnesium Hydroxide (Milk Of Magnesia) 30 ml PO BID PRN PRN Reason: Constipation Melatonin (Melatonin) 9 mg PO BEDTIME [facility] Last Admin: 03/25/17 22:03 Dose: 9 mg Naloxone HCl (Narcan) 0.2 mg IVPUSH ONETIME PRN PRN Reason: Oversedation Ondansetron HCl (Zofran) 8 mg IVPUSH Q4H PRN PRN Reason: Nausea/Vomiting Senna (Senna) 8.6 mg PO BID PRN PRN Reason: Constipation Tramadol HCl (Ultram) 50 mg PO Q6H PRN PRN Reason: Pain (moderate 4-6) Last Admin: 03/26/17 10:36 Dose: 50 mg Triamterene/HCTZ (Dyazide 25-37.5 Mg) 1 each PO DAILY [facility] Last Admin: 03/26/17 10:36 Dose: 1 each Discontinued Medications Acetaminophen (Tylenol Extra Strength) 1,000 mg PO ONETIME ONE Stop: 03/24/17 09:01 Acetaminophen (Tylenol Extra Strength) 1,000 mg PO ONETIME ONE Stop: 03/24/17 06:32 Last Admin: 03/24/17 06:44 Dose: 1,000 mg Ropivacaine 49.25 ml/Ketorolac Tromethamine 30 mg/Epinephrine HCl 0.5 mg/ Clonidine HCl 80 mcg/ Sodium Chloride 48.45 ml 0 ml INJECT ONETIME ONE Stop: 03/24/17 07:31 Last Admin: 03/24/17 08:26 Dose: 100 ml Dexamethasone (Dexamethasone) Confirm Administered Dose 4 mg .ROUTE .STK-MED ONE Stop: 03/24/17 07:25 Diazepam (Valium.) 5 mg PO Q6H PRN PRN Reason: Spasms Divalproex Sodium (Divalproex Sodium) 250 mg PO BIDMEALS [facility] Last Admin: 03/26/17 08:28 Dose: 250 mg Fentanyl (Sublimaze) Confirm Administered Dose 250 mcg .ROUTE .STK-MED ONE Stop: 03/24/17 07:24 Fentanyl (Sublimaze) Confirm Administered Dose 250 mcg .ROUTE .STK-MED ONE Stop: 03/24/17 08:54 Fentanyl (Sublimaze) 100 mcg IVPUSH ONETIME ONE Stop: 03/24/17 09:51 Last Admin: 03/24/17 09:50 Dose: 100 mcg Gabapentin (Neurontin) 300 mg PO ONETIME ONE Stop: 03/24/17 09:01 Gabapentin (Neurontin) 300 mg PO ONETIME ONE Stop: 03/24/17 06:32 Last Admin: 03/24/17 06:44 Dose: 300 mg Gelatin (Gelfoam) 2 gm .ROUTE .STK-MED ONE Stop: 03/24/17 08:01 Glycopyrrolate (Robinul) Confirm Administered Dose 1 mg .ROUTE .STK-MED ONE Stop: 03/24/17 07:25 Hydromorphone HCl (Dilaudid) 1 mg IVPUSH Q2H PRN PRN Reason: Pain Stop: 03/25/17 09:31 Lactated Ringer's (Ringers, Lactated) 1,000 mls @ 0 mls/hr IV ASDIRECTED [facility] PRN Reason: KVO Cefazolin Sodium/Dextrose 1 gm (/ Premix) 50 mls @ 100 mls/hr IV ONETIME ONE Stop: 03/24/17 09:29 Cefazolin Sodium/Dextrose 1 gm (/ Premix) 50 mls @ 100 mls/hr IV ONETIME ONE Stop: 03/24/17 07:00 Last Admin: 03/24/17 07:52 Dose: 100 mls/hr Acetaminophen 1,000 mg/ Premix 100 mls @ 400 mls/hr IV NOW ONE Stop: 03/24/17 10:14 Last Admin: 03/24/17 09:56 Dose: 400 mls/hr Cefazolin Sodium 1 gm/ Sodium (Chloride) 50 mls @ 100 mls/hr IV Q8H [facility] Stop: 03/25/17 02:14 Last Admin: 03/24/17 12:00 Dose: Not Given Sodium Chloride (Normal Saline) 1,000 mls @ 125 mls/hr IV ASDIRECTED [facility] Stop: 03/25/17 06:00 Last Admin: 03/24/17 10:25 Dose: 125 mls/hr Cefazolin Sodium/Dextrose 1 gm (/ Premix) 50 mls @ 100 mls/hr IV Q8H [facility] Stop: 03/25/17 06:29 Last Admin: 03/25/17 06:02 Dose: 100 mls/hr Methadone HCl (Methadone) 10 mg PO BID [facility] Neostigmine Methylsulfate (Neostigmine) Confirm Administered Dose 5 mg .ROUTE .STK-MED ONE Stop: 03/24/17 07:25 Ondansetron HCl (Zofran) Confirm Administered Dose 4 mg .ROUTE .STK-MED ONE Stop: 03/24/17 07:25 Oxycodone HCl (Oxycodone) 10 mg PO Q4H PRN PRN Reason: Pain Stop: 03/25/17 09:31 Last Admin: 03/25/17 09:16 Dose: 10 mg Oxycodone/Acetaminophen (Percocet 325-5 Mg) 2 tab PO Q4H PRN PRN Reason: Pain Povidone Iodine (Betadine 10% Soln) Confirm Administered Dose 1 ml .ROUTE .STK- MED ONE Stop: 03/24/17 07:13 Last Admin: 03/24/17 08:34 Dose: 30 ml Propofol (Diprivan 20 Ml) Confirm Administered Dose 200 mg .ROUTE .STK-MED ONE Stop: 03/24/17 07:25 Rocuronium [place] (Zemuron) Confirm Administered Dose 50 mg .ROUTE .STK-MED ONE Stop: 03/24/17 07:25 Scopolamine (Transderm-Scop) 1.5 mg TOP Q72H [facility] Stop: 03/27/17 04:00 Scopolamine (Transderm-Scop) 1.5 mg TOP Q72H [facility] Stop: 03/27/17 04:00 Last Admin: 03/24/17 06:45 Dose: 1.5 mg Thrombin (Thrombin-Jmi) Confirm Administered Dose 15,000 unit .ROUTE .STK-MED ONE Stop: 03/24/17 07:13 Last Admin: 03/24/17 07:50 Dose: 10,000 unit Zolpidem Tartrate (Ambien) 5 mg PO BEDTIME PRN PRN Reason: Sleep - Exam General: Alert, Oriented HEENT: Pupils Equal, Pupils Reactive, Mucous Membr. Moist/[place] Lungs: Normal Respiratory Effort Back Exam: Normal Inspection, Vertebral Tenderness Extremities: Normal Inspection, Normal Range of Motion, Normal Capillary Refill Skin: Warm, Dry, Intact Wound/Incisions: Healing Well, Dressing Dry and Intact, No Drainage Neurological: No New Focal Deficit Psy/Mental Status: Alert, Normal Affect, Normal Mood - Problem List & Annotations (1) Status post lumbar laminectomy SNOMED Code(s): 88838791365849883, 24062221727004010 Code(s): Z98.890 - OTHER SPECIFIED POSTPROCEDURAL STATES Status: Acute Current Visit: Yes Annotation/Comment:: L 4 - L 5 (2) Lumbar stenosis SNOMED Code(s): 02111677 Code(s): M48.06 - SPINAL STENOSIS, LUMBAR REGION * DO NOT USE * Status: Chronic Current Visit: No Qualifiers: - Problem List Review Problem List Initiated/Reviewed/Updated: Yes - My Orders Last 24 Hours: My Active Orders 03/25/17 16:03 traMADol [Ultram] 50 mg PO Q6H PRN 03/25/17 16:05 Acetaminophen [Tylenol] 650 mg PO Q6H PRN 03/25/17 23:00 Communication Order [RC] ASDIRECTED - Plan Plan:: assessment:postoperative day 2 lumbar laminectomy L4-5 Plan: We'll continue with physical therapy and occupational therapy. Will monitor her ability to urinate. She has been urinating well. She states that her mental status has improved since switching from Percocet to tramadol. We'll most likely discharge her tomorrow to extended care facility with two-week follow-up.
[2017-03-26] MEDS: Melatonin 3 MG Tab PO SCH (20:12)
[2017-03-26] MEDS: atorvaSTATin 10 MG Tab PO SCH (20:12)
[2017-03-27] MEDS: Acetaminophen 325 MG Tab PO PRN (02:05)
[2017-03-27] MEDS: traMADol 50 MG Tab PO PRN (02:06)
[2017-03-27 07:11] VITALS: BP 125/54
[2017-03-27] MEDS: Lactobacillus Rhamnosus GG (Probiotic) Cap PO SCH (08:15)
[2017-03-27] MEDS: Hydrochlorothiazide/Triamterene 25-37.5 MG Cap PO SCH (08:15)
--- NOTE | 2017-03-27 10:34 | PCM.DCSUM1 ---
Discharge Summary - Hospital Course Free Text/Narrative:: Patient is status pod 3 of a lumbar laminectomy. she is doing well. Pain is under control with oral pain medication. She is urinating without any difficulties. - Discharge Data Discharge Date: 03/27/17 Discharge Disposition: DC/Tfer to SNF 03 Condition: Good - Patient Summary/Data Consults: Consultations 03/24/17 09:31 OT Evaluation and Treatment [CONS] Routine Please Evaluate and Treat. OT Reason for Consult: Strengthening This query below is only for informational purposes and is not editable. PT Evaluation and Treatment [CONS] Routine Please Evaluate and Treat. PT Reason for Consult: Strengthening This query below is only for informational purposes and is not editable. 03/24/17 09:33 Consult to Physician [CONS] Routine Consulting Provider: Nathen López Call Completed to Consulting Physician: Yes - Patient Instructions Diet: Usual Diet as Tolerated Activity: Apply Ice, As Tolerated Driving: Do Not Drive Showering/Bathing: May Shower, No Tub Bathing/Swimming Wound/Incision Care: Keep Operative Site/Wound Site Clean and Dry, Change Dressing Daily Notify Provider of: Fever, Increased Pain, Swelling and Redness, Drainage, Nausea and/or Vomiting - Discharge Plan Prescriptions/Med Rec: Acetaminophen [Tylenol] 650 mg PO Q6H PRN #90 tablet PRN Reason: Pain (Mild 1-3) Sennosides [Senna] 8.6 mg PO BID PRN #90 tablet PRN Reason: Constipation traMADol [Ultram] 50 mg PO Q6H PRN #90 tablet PRN Reason: Pain (Moderate 4-6) Home Medications: Home Meds Aspirin [Dalila Chewable Aspirin] 81 mg PO BEDTIME 08/29/13 [History] Triamterene/Hydrochlorothiazid [Dyazide 37.5-25] 1 cap PO DAILY 08/29/13 [ History] Multivitamins 1 each PO DAILY 10/17/13 [History] Ca Carbonate/Vitamin D3/Vit K [Calcium + D Soft Chewable Tab] 1 each PO BID [History] atorvaSTATin [Lipitor] 10 mg PO BEDTIME 11/14/15 [History] Lactobacillus Rhamnosus GG [Culturelle] 1 tab PO DAILY 02/04/17 [History] Acetaminophen [Tylenol] 650 mg PO Q6H PRN #90 tablet 03/27/17 [Rx] Sennosides [Senna] 8.6 mg PO BID PRN #90 tablet 03/27/17 [Rx] traMADol [Ultram] 50 mg PO Q6H PRN #90 tablet 03/27/17 [Rx] Patient Handouts: Laminectomy, Care After, Preventing Constipation After Surgery Referrals: Itzel Cheung, [employer]ATOR [Nurse Practitioner] - (2 week follow up) - Discharge Summary/Plan Comment DC Time >30 min.: Yes Discharge Summary/Plan Comment: Patient will dc today to [facility] in [place]. She will follow up with ortho in 2 weeks. She will be sent the SNF with ultram, colace, and tylenol as needed. - Patient Data Vitals - Most Recent: Last Vital Signs Temp 36.5 C 03/27/17 07:07 Pulse 80 03/27/17 07:07 Resp 16 03/27/17 07:07 BP 125/54 L 03/27/17 07:07 Pulse Ox 99 03/27/17 07:07 Weight - Most Recent: 138 lb I&O - Last 24 hours: Intake & Output 03/26/17 03/27/17 03/27/17 22:59 06:59 14:59 Intake Total 100 1040 360 Output Total 200 650 375 Balance -100 390 -15 Lab Results - Last 24 hrs: Laboratory Results - last 24 hr 03/27/17 03/27/17 Range/Units 09:54 10:00 WBC 11.5 H (4.5-11.0) K/uL RBC 3.27 L (3.30-5.50) M/uL Hgb 10.3 L (12.0-15.0) g/dL Hct 30.2 L (36.0-48.0) % MCV 92 (80-98) fL MCH 32 H (27-31) pg MCHC 34 (32-36) % Plt Count 326 (150-400) K/uL Neut % (Auto) 77 H (36-66) % Lymph % (Auto) 11 L (24-44) % [facility] % (Auto) 10 H (2-6) % Eos % (Auto) 1 L (2-4) % Baso % (Auto) 0 (0-1) % Sodium 129 L (140-148) mmol/L Potassium 3.6 (3.6-5.2) mmol/L Chloride 92 L (100-108) mmol/L Carbon Dioxide 29 (21-32) mmol/L Anion Gap 11.6 (5.0-14.0) mmol/L BUN 13 (7-18) mg/dL Creatinine 0.6 (0.6-1.0) mg/dL Est Cr Clr Drug Dosing 62.89 mL/min Estimated GFR (MDRD) > 60 (>60) Glucose 85 (74-106) mg/dL Calcium 8.5 (8.5-10.1) mg/dL Med Orders - Current: Current Medications Acetaminophen (Tylenol) 650 mg PO Q6H PRN PRN Reason: Pain (mild 1-3) Last Admin: 03/27/17 02:05 Dose: 650 mg Al Hydroxide/Mg Hydroxide (Mag-Al Plus) 30 ml PO Q4H PRN PRN Reason: Indigestion Atorvastatin Calcium (Lipitor) 10 mg PO BEDTIME [facility] Last Admin: 03/26/17 20:12 Dose: 10 mg Lactated Ringer's (Ringers, Lactated) 1,000 mls @ 0 mls/hr IV ASDIRECTED [facility] PRN Reason: KVO Last Admin: 03/24/17 06:00 Dose: 100 mls/hr Lactobacillus Rhamnosus (Culturelle) 1 cap PO DAILY [facility] Last Admin: 03/27/17 08:15 Dose: 1 cap Magnesium Hydroxide (Milk Of Magnesia) 30 ml PO BID PRN PRN Reason: Constipation Melatonin (Melatonin) 9 mg PO BEDTIME [facility] Last Admin: 03/26/17 20:12 Dose: 9 mg Naloxone HCl (Narcan) 0.2 mg IVPUSH ONETIME PRN PRN Reason: Oversedation Ondansetron HCl (Zofran) 8 mg IVPUSH Q4H PRN PRN Reason: Nausea/Vomiting Senna (Senna) 8.6 mg PO BID PRN PRN Reason: Constipation Last Admin: 03/26/17 20:24 Dose: 8.6 mg Tramadol HCl (Ultram) 50 mg PO Q6H PRN PRN Reason: Pain (moderate 4-6) Last Admin: 03/27/17 02:06 Dose: 50 mg Triamterene/HCTZ (Dyazide 25-37.5 Mg) 1 each PO DAILY [facility] Last Admin: 03/27/17 08:15 Dose: 1 each Discontinued Medications Acetaminophen (Tylenol Extra Strength) 1,000 mg PO ONETIME ONE Stop: 03/24/17 09:01 Acetaminophen (Tylenol Extra Strength) 1,000 mg PO ONETIME ONE Stop: 03/24/17 06:32 Last Admin: 03/24/17 06:44 Dose: 1,000 mg Ropivacaine 49.25 ml/Ketorolac Tromethamine 30 mg/Epinephrine HCl 0.5 mg/ Clonidine HCl 80 mcg/ Sodium Chloride 48.45 ml 0 ml INJECT ONETIME ONE Stop: 03/24/17 07:31 Last Admin: 03/24/17 08:26 Dose: 100 ml Dexamethasone (Dexamethasone) Confirm Administered Dose 4 mg .ROUTE .STK-MED ONE Stop: 03/24/17 07:25 Diazepam (Valium.) 5 mg PO Q6H PRN PRN Reason: Spasms Divalproex Sodium (Divalproex Sodium) 250 mg PO BIDMEALS [facility] Last Admin: 03/26/17 08:28 Dose: 250 mg Fentanyl (Sublimaze) Confirm Administered Dose 250 mcg .ROUTE .STK-MED ONE Stop: 03/24/17 07:24 Fentanyl (Sublimaze) Confirm Administered Dose 250 mcg .ROUTE .STK-MED ONE Stop: 03/24/17 08:54 Fentanyl (Sublimaze) 100 mcg IVPUSH ONETIME ONE Stop: 03/24/17 09:51 Last Admin: 03/24/17 09:50 Dose: 100 mcg Gabapentin (Neurontin) 300 mg PO ONETIME ONE Stop: 03/24/17 09:01 Gabapentin (Neurontin) 300 mg PO ONETIME ONE Stop: 03/24/17 06:32 Last Admin: 03/24/17 06:44 Dose: 300 mg Gelatin (Gelfoam) 2 gm .ROUTE .STK-MED ONE Stop: 03/24/17 08:01 Glycopyrrolate (Robinul) Confirm Administered Dose 1 mg .ROUTE .STK-MED ONE Stop: 03/24/17 07:25 Hydromorphone HCl (Dilaudid) 1 mg IVPUSH Q2H PRN PRN Reason: Pain Stop: 03/25/17 09:31 Lactated Ringer's (Ringers, Lactated) 1,000 mls @ 0 mls/hr IV ASDIRECTED [facility] PRN Reason: KVO Cefazolin Sodium/Dextrose 1 gm (/ Premix) 50 mls @ 100 mls/hr IV ONETIME ONE Stop: 03/24/17 09:29 Cefazolin Sodium/Dextrose 1 gm (/ Premix) 50 mls @ 100 mls/hr IV ONETIME ONE Stop: 03/24/17 07:00 Last Admin: 03/24/17 07:52 Dose: 100 mls/hr Acetaminophen 1,000 mg/ Premix 100 mls @ 400 mls/hr IV NOW ONE Stop: 03/24/17 10:14 Last Admin: 03/24/17 09:56 Dose: 400 mls/hr Cefazolin Sodium 1 gm/ Sodium (Chloride) 50 mls @ 100 mls/hr IV Q8H [facility] Stop: 03/25/17 02:14 Last Admin: 03/24/17 12:00 Dose: Not Given Sodium Chloride (Normal Saline) 1,000 mls @ 125 mls/hr IV ASDIRECTED [facility] Stop: 03/25/17 06:00 Last Admin: 03/24/17 10:25 Dose: 125 mls/hr Cefazolin Sodium/Dextrose 1 gm (/ Premix) 50 mls @ 100 mls/hr IV Q8H [facility] Stop: 03/25/17 06:29 Last Admin: 03/25/17 06:02 Dose: 100 mls/hr Methadone HCl (Methadone) 10 mg PO BID [facility] Neostigmine Methylsulfate (Neostigmine) Confirm Administered Dose 5 mg .ROUTE .STK-MED ONE Stop: 03/24/17 07:25 Ondansetron HCl (Zofran) Confirm Administered Dose 4 mg .ROUTE .STK-MED ONE Stop: 03/24/17 07:25 Oxycodone HCl (Oxycodone) 10 mg PO Q4H PRN PRN Reason: Pain Stop: 03/25/17 09:31 Last Admin: 03/25/17 09:16 Dose: 10 mg Oxycodone/Acetaminophen (Percocet 325-5 Mg) 2 tab PO Q4H PRN PRN Reason: Pain Povidone Iodine (Betadine 10% Soln) Confirm Administered Dose 1 ml .ROUTE .STK- MED ONE Stop: 03/24/17 07:13 Last Admin: 03/24/17 08:34 Dose: 30 ml Propofol (Diprivan 20 Ml) Confirm Administered Dose 200 mg .ROUTE .STK-MED ONE Stop: 03/24/17 07:25 Rocuronium [place] (Zemuron) Confirm Administered Dose 50 mg .ROUTE .STK-MED ONE Stop: 03/24/17 07:25 Scopolamine (Transderm-Scop) 1.5 mg TOP Q72H [facility] Stop: 03/27/17 04:00 Scopolamine (Transderm-Scop) 1.5 mg TOP Q72H [facility] Stop: 03/27/17 04:00 Last Admin: 03/24/17 06:45 Dose: 1.5 mg Thrombin (Thrombin-Jmi) Confirm Administered Dose 15,000 unit .ROUTE .STK-MED ONE Stop: 03/24/17 07:13 Last Admin: 03/24/17 07:50 Dose: 10,000 unit Zolpidem Tartrate (Ambien) 5 mg PO BEDTIME PRN PRN Reason: Sleep - Exam General: Reports: Alert, Oriented Back Exam: Reports: Normal Inspection Extremities: Normal Inspection, Normal Range of Motion, Non-Tender Skin: Reports: Warm, Dry, Intact Wound/Incisions: Reports: Healing Well, Dressing Dry and Intact Neurological: Reports: No New Focal Deficit Psy/Mental Status: Reports: Alert *Q Meaningful Use (DIS) - VTE *Q VTE Criteria *Q: - Stroke *Q Stroke Criteria *Q: - AMI *Q AMI Criteria *Q:
== END 2017-03-27 11:12 | DRG 517 ==
LOC: JP.SDSSCHI 05:27 → JP.SDS 05:27 → EDSTATUS 07:30 → JP.MS 09:31
PROVIDERS: ADMIT Orthopaedic Surgery; ATTEND Orthopaedic Surgery
PROC: 0QB00ZZ Excision of Lumbar Vertebra, Open Approach (ICD-10-PCS; principal; 2017-03-24)
DX: M48.061 Spinal stenosis, lumbar region without neurogenic claudication (principal); M54.16 Radiculopathy, lumbar region; I10 Essential (primary) hypertension; E78.00 Pure hypercholesterolemia, unspecified; M35.3 Polymyalgia rheumatica; H91.90 Unspecified hearing loss, unspecified ear; H54.7 Unspecified visual loss; Z79.82 Long term (current) use of aspirin; Z79.899 Other long term (current) drug therapy
CPT/HCPCS: 36415; 51702; 51798; 76000; 80048; 84295; 85025; 94762; 97110-GP; 97140-GP; 97161-GP; 97165-GO; 97530-GP; 97535-GP; A9270-GY; J0131; J0171; J0690; J0735; J1100; J1885; J2405; J2704; J2710; J2795; J3010; J7040; J7050; J7120